=== PATIENT | male | born 1940 | race Caucasian/White ===

== ENCOUNTER 2024-05-07 10:43 | Emergency (ER) | payer MEDICARE, BC ==
[2024-05-07] MEDS ORDERED: Sodium Chloride 0.9% 10 ML Syringe FLUSH ONE (11:50)
[2024-05-07 11:52] LABS: BASOPHILS ABSOLUTE AUTO 0.03 K/uL (0.00-0.10); BASOPHILS PERCENT AUTO 0.8 % (0.1-1.3); EOSINOPHILS PERCENT AUTO 0.3 % (0.0-5.4); HEMATOCRIT 47.7 % (38.4-49.7); HEMOGLOBIN 16.1 g/dL (12.9-16.9); IMMATURE GRAN PERCENT AUTO 0.5 % (0.0-0.7); LYMPHOCYTES ABSOLUTE AUTO 0.73 K/uL (0.8-3.3); LYMPHOCYTES PERCENT AUTO 18.7 % (11.4-47.7); MEAN CORPUSCULAR HEMOGLOBIN 31.5 pg (31.6-35.5); MEAN CORPUSCULAR HGB CONC 33.8 g/dL (31.6-35.5); MEAN CORPUSCULAR VOLUME 93.3 fL (81.4-99.0); MONOCYTES ABSOLUTE AUTO 0.25 K/uL (0.20-0.90); MONOCYTES PERCENT AUTO 6.4 % (3.3-12.6); NEUTROPHILS ABSOLUTE AUTO 2.87 K/uL (1.0-7.6); NEUTROPHILS PERCENT AUTO 73.3 % (40.0-78.1); PLATELET COUNT,PLT 84 K/uL (130-375); RED BLOOD CELL COUNT 5.11 M/uL (4.14-5.76); WHITE BLOOD CELL COUNT,WBC 3.9 K/uL (3.2-11.0)
[2024-05-07] MEDS ORDERED: Iopamidol 755 Mg/ML 100 ML Bottle IV SCH (12:00)
[2024-05-07] MEDS ORDERED: Sodium Chloride 0.9% 60 ML IV SCH (12:00)
[2024-05-07 12:04] LABS: EOSINOPHILS ABSOLUTE AUTO 0.01 K/uL (0.00-0.40); IMMATURE GRAN ABSOLUTE AUTO 0.02 K/uL (0.00-0.23)
[2024-05-07 12:13] LABS: HEMOGLOBIN A1C 5.6 % (4.5-6.2)
[2024-05-07 12:14] LABS: A/G RATIO 1.1 (1.2-2.2); ALANINE AMINOTRANSFERASE,ALT 27 U/L (12-78); ALBUMIN 3.9 g/dL (3.4-5.0); ALKALINE PHOSPHATASE 66 U/L (46-116); ASPARTATE AMNIOTRANSFERASE,AST 29 U/L (15-37); BILIRUBIN TOTAL 0.8 mg/dL (0.2-1.0); BLOOD UREA NITROGEN,BUN 21 mg/dL (7-18); CARBON DIOXIDE,CO2 27 mmol/L (21-32); CHLORIDE,CL 101 mmol/L (100-108); CREATININE 1.7 mg/dL (0.8-1.3); ESTIMATED GFR 39 mL/min (>60); GLUCOSE RANDOM 121 mg/dL (74-106); POTASSIUM,K 4.3 mmol/L (3.6-5.2); PROTEIN TOTAL,TP 7.4 g/dL (6.4-8.2); SODIUM,NA 138 mmol/L (140-148)
[2024-05-07 12:20] LABS: ANION GAP 14.3 mmol/L (5.0-14.0)
[2024-05-07] MEDS: Sodium Chloride 0.9% 500 ML IV SCH (13:05)
[2024-05-07 14:22] VITALS: PULSE 65
[2024-05-07 14:23] VITALS: BP 131/73
[2024-05-07] MEDS: Doxycycline 100 MG Cap PO ONE (15:29)
[2024-05-07] MEDS: Acetaminophen 500 MG Tab PO ONE (15:29)
[2024-05-07] MEDS: Acetaminophen 325 MG Tab PO ONE (15:35)
[2024-05-07 15:43] LABS: LYME AB IgG Negative (Negative)
[2024-05-07 15:48] LABS: LACTIC ACID 1.7 mmol/L (0.7-2.1)
[2024-05-07 15:49] LABS: LYME AB IgM Negative (Negative)
[2024-05-07 15:54] LABS: APPEARANCE,URINE CLEAR (CLEAR); BILIRUBIN,URINE NEGATIVE (NEGATIVE); COLOR,URINE YELLOW (YELLOW); GLUCOSE,URINE NEGATIVE (NEGATIVE); KETONES,URINE TRACE mg/dL (NEGATIVE); LEUKOCYTE ESTERASE,URINE NEGATIVE (NEGATIVE); NITRITE,URINE NEGATIVE (NEGATIVE); OCCULT BLOOD,URINE SMALL (NEGATIVE); PROTEIN,URINE 100 mg/dL (NEGATIVE)
[2024-05-07 16:02] LABS: AMORPHOUS SEDIMENT,URINE NOT SEEN; BACTERIA,URINE FEW; EPITHELIAL CELLS,URINE RARE; MUCUS,URINE NOT SEEN; WBC,URINE 0-5 (0-5)
[2024-05-07 16:22] LABS: CORONAVIRUS COVID-19 NAA NEGATIVE (NEGATIVE); INFLUENZA A NAA NEGATIVE (NEGATIVE); INFLUENZA B NAA NEGATIVE (NEGATIVE); RESPIRATORY SYNCYTIAL VIR NAA NEGATIVE (NEGATIVE)
[2024-05-10 16:47] LABS: ANAPLASMA PHAGOCYTOPHILUM PCR Detected; BABESIA MICROTI BY PCR Not Detected; BABESIA SPECIES BY PCR Not Detected; EHRLICHIA CHAFFEENSIS BY PCR Not Detected; EHRLICHIA EWINGII/CANIS BY PCR Not Detected; EHRLICHIA MURIS-LIKE BY PCR Not Detected
== END 2024-05-07 17:09 | disposition home or self-care (01) ==
LOC: JP.ED 10:43
DX: I65.01 Occlusion and stenosis of right vertebral artery (principal); E87.1 Hypo-osmolality and hyponatremia; R73.9 Hyperglycemia, unspecified; D69.6 Thrombocytopenia, unspecified; Z79.82 Long term (current) use of aspirin; Z79.899 Other long term (current) drug therapy
CPT/HCPCS: 0241U; 36415; 70450; 70450-26; 70496; 70496-26; 70498; 70498-26; 71046; 71046-26; 80053; 81001; 83036; 83605; 85025; 86618; 87040; 87468; 87469; 87484; 87798; 96360; 96361; 99284; 99285-25; A9270-GY; J7030

== ENCOUNTER 2024-05-08 00:33 | Inpatient (IN) | payer MEDICARE, BC ==
[2024-05-08 01:29] LABS: BASOPHILS ABSOLUTE AUTO 0.03 K/uL (0.00-0.10); BASOPHILS PERCENT AUTO 0.7 % (0.1-1.3); EOSINOPHILS PERCENT AUTO 0.2 % (0.0-5.4); HEMATOCRIT 46.3 % (38.4-49.7); HEMOGLOBIN 15.7 g/dL (12.9-16.9); IMMATURE GRAN ABSOLUTE AUTO 0.03 K/uL (0.00-0.23); IMMATURE GRAN PERCENT AUTO 0.7 % (0.0-0.7); LYMPHOCYTES ABSOLUTE AUTO 0.86 K/uL (0.8-3.3); LYMPHOCYTES PERCENT AUTO 20.4 % (11.4-47.7); MEAN CORPUSCULAR HEMOGLOBIN 31.2 pg (31.6-35.5); MEAN CORPUSCULAR HGB CONC 33.9 g/dL (31.6-35.5); MONOCYTES ABSOLUTE AUTO 0.32 K/uL (0.20-0.90); MONOCYTES PERCENT AUTO 7.6 % (3.3-12.6); NEUTROPHILS ABSOLUTE AUTO 2.97 K/uL (1.0-7.6); NEUTROPHILS PERCENT AUTO 70.4 % (40.0-78.1); PLATELET COUNT,PLT 81 K/uL (130-375); RED BLOOD CELL COUNT 5.03 M/uL (4.14-5.76); WHITE BLOOD CELL COUNT,WBC 4.2 K/uL (3.2-11.0)
[2024-05-08 01:31] LABS: EOSINOPHILS ABSOLUTE AUTO 0.01 K/uL (0.00-0.40)
[2024-05-08 01:51] LABS: CALCIUM 8.5 mg/dL (8.5-10.1); CREATININE 1.7 mg/dL (0.8-1.3); EST CRCL DRUG DOSING (CG) 34.87 mL/min; MAGNESIUM 1.8 mg/dL (1.8-2.4); POTASSIUM,K 4.1 mmol/L (3.6-5.2); TROPONIN I HIGH SENSITIVITY 23.8 pg/mL (<=60.3)
[2024-05-08 01:54] LABS: ANION GAP 15.1 mmol/L (5.0-14.0)
[2024-05-08] MEDS: cefTRIAXone 2 GM in Sodium Chloride 0.9% 50 ML IV SCH (03:15)
[2024-05-08] MEDS: Acetaminophen 500 MG Tab PO ONE (03:15)
[2024-05-08] MEDS ORDERED: Acetaminophen 325 MG Tab PO PRN (03:30)
[2024-05-08] MEDS: Doxycycline 100 MG in Sodium Chloride 0.9% 100 ML IV SCH ×2 (04:17→15:49)
[2024-05-08 05:09] LABS: LYME AB IgG Negative (Negative)
[2024-05-08 05:39] LABS: LYME AB IgM Negative (Negative)
[2024-05-08] MEDS: Sodium Chloride 0.9% 1,000 ML IV SCH (07:00)
[2024-05-08] MEDS: Rosuvastatin 10 MG Tab PO SCH (09:50)
[2024-05-08] MEDS: Enoxaparin 40 MG/0.4 ML Syringe SUBCUT SCH (09:51)
[2024-05-08] MEDS: Tamsulosin 0.4 MG Cap.ER PO SCH (09:51)
[2024-05-09 05:49] LABS: CALCIUM 8.4 mg/dL (8.5-10.1); CREATININE 1.3 mg/dL (0.8-1.3); EST CRCL DRUG DOSING (CG) 46.95 mL/min
[2024-05-09 09:04] VITALS: BP 117/57; PULSE 75
[2024-05-11 06:22] LABS: EHRLICHIA CHAFFEENSIS AB, IGM < 1:16 (< 1:16)
[2024-05-11 17:09] LABS: BABESIA MICROTI IGG < 1:16 (< 1:16); BABESIA MICROTI IGM <1:20 (<1:20)
== END 2024-05-09 11:33 | disposition home or self-care (01) | DRG 869 ==
LOC: JP.ED 00:33 → JP.ICU 02:57
PROVIDERS: ADMIT Hospitalist; ATTEND Hospitalist
DX: R53.1 Weakness (principal); A77.49 Other ehrlichiosis; I65.01 Occlusion and stenosis of right vertebral artery; D69.6 Thrombocytopenia, unspecified; N40.0 Benign prostatic hyperplasia without lower urinary tract symptoms; R73.9 Hyperglycemia, unspecified; Z79.82 Long term (current) use of aspirin; Z79.899 Other long term (current) drug therapy; I25.2 Old myocardial infarction; Z95.5 Presence of coronary angioplasty implant and graft; Z87.442 Personal history of urinary calculi; Z87.81 Personal history of (healed) traumatic fracture; Z90.89 Acquired absence of other organs; Z98.890 Other specified postprocedural states; Z87.891 Personal history of nicotine dependence; Z91.89 Other specified personal risk factors, not elsewhere classified
CPT/HCPCS: 36415; 80048; 83605; 83735; 84145; 84484; 85025; 86140; 86618; 86666; 86753; 87040; 87077; 93005; 93010; 99222; 99238; 99285; A9270-GY; J0696; J1650; J3490; J7030